=== PATIENT | male | born 1990 | race Caucasian/White ===

== ENCOUNTER 2022-11-12 08:04 | Emergency (ER) | payer SELFPAY ==
[~2022-11-12] VITALS: Ht 180.3 cm; Wt 70.3 kg
[2022-11-12 11:07] VITALS: BP 127/84
[2022-11-12] MEDS ORDERED: TAM75CAP PO (11:15)
== END 2022-11-12 11:35 | disposition home or self-care (01) | DRG 195 ==
LOC: ED 08:04
DX: J10.1 Influenza due to other identified influenza virus with other respiratory manifestations (principal); Z20.822 Contact with and (suspected) exposure to COVID-19